=== PATIENT | male | born 1995 | race Caucasian/White ===

== ENCOUNTER 2017-08-01 06:00 | Emergency (ER) | payer BC ==
[~2017-08-01] VITALS: Ht 190.5 cm; Wt 115.5 kg
[~2017-08-01 06:00] MED LIST: MOTRIN800 MG PO
[2017-08-01 06:28] LABS: HEMATOCRIT 41.7 % (38.0-50.0); MCHC 32.9 G/DL (30.0-36.0); MCV 85.1 FL (86-99); MEAN PLAT.VOLUME 10.8 uM^3 (9.0-12.4); PLATELET COUNT 243 K/uL (156-360); RBC DIS.WIDTH-CV 12.5 % (11.8-14.6); RBC DIS.WIDTH-SD 38.5 % (39-53); WHITE BLOOD COUNT 8.9 K/uL (4.1-10.2)
[2017-08-01 06:39] LABS: CHLORIDE 103 mEq/L (99-109); POTASSIUM 3.7 mEq/L (3.7-5.4); SODIUM 138 mEq/L (136-147)
[2017-08-01 06:40] LABS: GLUCOSE 81 mg/dL (70-99)
[2017-08-01 06:42] LABS: ANION GAP 8 MEQ/L (2-14)
[2017-08-01 06:44] LABS: GFR ESTIMATE (CALCULATED) > 59 mL/min/
[2017-08-01 06:45] LABS: UREA NITROGEN (BUN) 14 mg/dL (9-23)
[2017-08-01 06:50] LABS: TROP-I INTERPRETATION NEGATIVE; TROPONIN-I < 0.01 ng/mL (0.0-0.30)
[2017-08-01 08:43] LABS: TROP-I INTERPRETATION NEGATIVE; TROPONIN-I < 0.01 ng/mL (0.0-0.30)
[2017-08-01 09:31] VITALS: BP 143/75
== END 2017-08-01 09:34 | disposition home or self-care (01) ==
LOC: EME 06:00
PROVIDERS: Emergency Medicine
DX: R07.9 Chest pain, unspecified (principal); R42 Dizziness and giddiness; I10 Essential (primary) hypertension; Z82.49 Family history of ischemic heart disease and other diseases of the circulatory system; Z88.0 Allergy status to penicillin
CPT/HCPCS: 71020; 80048; 84484; 85027; 93005; 99281; 99285; J7030